=== PATIENT | female | born 1985 | race Caucasian/White ===

== ENCOUNTER 2018-11-08 14:22 | Day surgery (SDC) | payer OTHER ==
[~2018-11-08] VITALS: Ht 175.3 cm; Wt 68.3 kg
[2018-11-08] MEDS ORDERED: B-12 100 MCG PO (14:51)
[2018-11-08] MEDS ORDERED: MULTIPLE VITAMI1 CAP PO (14:52)
[2018-11-08 15:12] VITALS: BP 118/76; PULSE 83; TEMP 97.8
[2018-11-08 16:45] VITALS: BP 106/70; PULSE 81; TEMP 97.7
[2018-11-08 17:00] VITALS: BP 105/75; PULSE 69
--- NOTE | 2018-11-08 17:09 | NUR ---
PATIENT EATING PUDDING AND DRINKING WATER. CALL LIGHT WITHIN REACH.
[2018-11-08 17:30] VITALS: BP 106/74; PULSE 16; TEMP 98
--- NOTE | 2018-11-08 17:59 | NUR ---
PATIENT DISCHARGED TO HOME. VERBALIZED UNDERSTANDING. IV DISCONTINUED. PUSHED IN WHEELCHAIR TO PERSONAL VEHICHLE WITH FRIEND.
[2018-11-08 18:00] VITALS: BP 96/59; PULSE 74
== END 2018-11-08 17:50 | disposition home or self-care (01) ==
LOC: SDCO 14:22
DX: K29.80 Duodenitis without bleeding (principal); K21.9 Gastro-esophageal reflux disease without esophagitis; K63.9 Disease of intestine, unspecified; Z86.19 Personal history of other infectious and parasitic diseases; R19.7 Diarrhea, unspecified
CPT/HCPCS: J2250; J2405; J3010; J7030